=== PATIENT | male | born 1990 | race Caucasian/White ===

== ENCOUNTER 2016-11-22 13:02 | Emergency (ER) | payer OTHER ==
[~2016-11-22] VITALS: Ht 165.1 cm; Wt 84.0 kg
[2016-11-22 13:06] VITALS: BP 128/83; PULSE 90; RESP 17; TEMP 97.9; O2SAT 98
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
== END 2016-11-22 13:51 | disposition left against medical advice (07) ==
LOC: NEPK 13:02
DX: Z04.1 Encounter for examination and observation following transport accident (principal)
CPT/HCPCS: 99281